=== PATIENT | female | born 1985 | race African-American/Black ===

== ENCOUNTER 2018-04-05 18:11 | Emergency (ER) | payer OTHER ==
[~2018-04-05] VITALS: Ht 160 cm; Wt 54.0 kg
[~2018-04-05 18:11] MED LIST: NOCURR
[2018-04-05] MEDS ORDERED: PREN1TAB80 PO (18:14)
[2018-04-05 18:29] LABS: EOSINOPHILS % (AUTO) 0.6 % (1.0-6.0); HEMATOCRIT 35.4 % (36-46); HEMOGLOBIN 11.8 g/dL (12.0-16.0); LYMPHOCYTES # (AUTO) 2.2 K/uL (1.0-4.8); LYMPHOCYTES % (AUTO) 29.7 % (22.0-44.0); MEAN CORPUSCULAR HEMOGLOBIN 27.2 pg (26.0-34.0); MEAN CORPUSCULAR HGB CONC 33.2 G/dL (31.0-37.0); MEAN CORPUSCULAR VOLUME 82 fL (80-100); MONOCYTES # (AUTO) 0.3 K/uL (0.1-1.0); MONOCYTES % (AUTO) 4.1 % (2.0-9.0); NEUTROPHILS # (AUTO) 4.8 K/uL (1.8-7.7); NEUTROPHILS % (AUTO) 64.6 % (40.0-70.0); PLATELET COUNT (AUTO) 212 K/uL (150-450); RED BLOOD CELL COUNT(AUTO) 4.33 MIL/uL (4.00-5.20); RED CELL DISTRIBUTION WIDTH 14.2 % (11.5-14.5)
[2018-04-05 23:36] VITALS: BP 115/75
== END 2018-04-05 23:39 | disposition home or self-care (01) ==
LOC: EMS 18:12
DX: O20.0 Threatened abortion (principal); Z3A.01 Less than 8 weeks gestation of pregnancy; Z79.899 Other long term (current) drug therapy
CPT/HCPCS: 76801; 76817; 99285